=== PATIENT | male | born 1970 | race Caucasian/White ===

== ENCOUNTER 2018-11-30 14:58 | Emergency (ER) | payer BC ==
[~2018-11-30] VITALS: Ht 177.8 cm; Wt 105.3 kg
--- NOTE | 2018-11-30 15:19 | RAD ---
EXAM: Chest, single view. HISTORY: Chest pain. COMPARISON: None. FINDINGS: A frontal view of the chest is obtained. There is no infiltrate, pleural effusion or pneumothorax. There are slight decreased lung volumes with associated atelectasis and vascular crowding. The cardiac silhouette is normal in size for lung volumes. IMPRESSION: No acute pulmonary finding. Electronically signed by: Lakeshia Hitchcock MD (11/30/2018 3:16 PM) [place] [id number]
--- NOTE | 2018-11-30 15:33 | PHYS DOC ---
Adult General Chief Complaint Chief Complaint: CHEST PAIN HPI HPI 48-year-old male presents with chest pain. The patient was eating lunch earlier today when he felt like he got a piece of food stuck. He had an episode of vomiting. Since that time he's had some right sided chest pain. Patient thought it might just be gas so he took some Gas-X. He decided to come the emergency room when he additionally developed cramping between his shoulder blades and the pain was as high as 9 out of 10. At this time the pain is resolved, but it seems to come and go. He has no heart history. He denies shortness of breath or diaphoresis. He has not had an EGD to evaluate his swallowing issues. He is not on any medications. He denies fever or chills. Review of Systems Review of Systems Constitutional: Denies fever or chills [] Eyes: Denies change in visual acuity, redness, or eye pain [] HENT: Denies nasal congestion or sore throat [] Respiratory: Denies cough or shortness of breath [] Cardiovascular: No additional information not addressed in HPI [] GI: Denies abdominal pain, nausea, vomiting, bloody stools or diarrhea [] : Denies dysuria or hematuria [] Musculoskeletal: Pain between the shoulder blades.[] Integument: Denies rash or skin lesions [] Neurologic: Denies headache, focal weakness or sensory changes [] Endocrine: Denies polyuria or polydipsia [] All other systems were reviewed and found to be within normal limits, except as documented in this note. Current Medications Current Medications Current Medications Medications (Trade) Dose Ordered Sig/[facility] Start Time Stop Time Status Last Admin Dose Admin Aspirin (Children'S Aspirin) 324 mg 1X ONCE 11/30/18 15:15 11/30/18 15:16 UNV Physical Exam Physical Exam Constitutional: Well developed, well nourished, no acute distress, non-toxic appearance. [] HENT: Normocephalic, atraumatic, bilateral external ears normal, oropharynx moist, no oral exudates, nose normal. [] Eyes: PERRLA, EOMI, conjunctiva normal, no discharge. [] Neck: Normal range of motion, no tenderness, supple, no stridor. [] Cardiovascular:Heart rate regular rhythm, no murmur [] Lungs & Thorax: Bilateral breath sounds clear to auscultation [] Abdomen: Bowel sounds normal, soft, no tenderness, no masses, no pulsatile masses. [] Skin: Warm, dry, no erythema, no rash. [] Back: No tenderness, no CVA tenderness. [] Extremities: No tenderness, no cyanosis, no clubbing, ROM intact, no edema. [] Neurologic: Alert and oriented X 3, normal motor function, normal sensory function, no focal deficits noted. [] Psychologic: Affect normal, judgement normal, mood anxious. [] EKG EKG Sinus rhythm, rate 86, normal axis, no ST elevations or depressions.[] Radiology/Procedures Radiology/Procedures [] Impressions: EXAM: Chest, single view. HISTORY: Chest pain. COMPARISON: None. FINDINGS: A frontal view of the chest is obtained. There is no infiltrate, pleural effusion or pneumothorax. There are slight decreased lung volumes with associated atelectasis and vascular crowding. The cardiac silhouette is normal in size for lung volumes. IMPRESSION: No acute pulmonary finding. Electronically signed by: Lakeshia Hitchcock MD (11/30/2018 3:16 PM) [place] [id number] DICTATED AND SIGNED BY: LAKESHIA HITCHCOCK MD DATE: 11/30/18 1818 CC: RANDY ARIAS DO; PCP,NO Course & Med Decision Making Course & Med Decision Making Pertinent Labs and Imaging studies reviewed. (See chart for details) The patient's HEART score is 1 for age. The patient's labs are unremarkable except for an elevated white count. His troponin is negative. His EKG is unremarkable. His chest x-ray is unremarkable. I believe the patient may be having esophageal spasm. Partially stuck fluid bolus. I will try a GI cocktail to see if this improves his pain. Patient's pain has improved significant family. He is having occasional tightening in the epigastric area, but is much less severe. It sounds like the patient is having esophageal spasm likely from irritation with the food getting caught. I have advised the patient to seek an outpatient EGD since he has had long-standing issues with swallowing. Do not believe his pain is cardiac in origin. I have offered the patient observation admission versus going home. He has elected to go home. I stressed to him that if his condition worsens or if the symptoms return that he should come back to the emergency room. He is stated verbal agreement. I cannot explain his elevated white count. The patient did have a single shot 2 days ago and is possibly an immune reaction. I do not have any signs of infection. The patient is stable for discharge at this time. [] Dragon Disclaimer Dragon Disclaimer This electronic medical record was generated, in whole or in part, using a voice recognition dictation system. Departure Departure: Impression: Primary Impression: Chest pain Additional Impression: Esophageal spasm Disposition: HOME, SELF-CARE Condition: STABLE Referrals: PCP,NO (PCP) Patient Instructions: Chest Pain (Nonspecific), [id number], Esophageal Spasm Problem Qualifiers Primary Impression: Chest pain Chest pain type: other chest pain Qualified Codes: R07.89 - Other chest pain RANDY ARIAS DO Nov 30, 2018 15:33
[2018-11-30 15:39] LABS: BASO # 0.1 x10^3/uL (0.0-0.2); BASO % 0 % (0-3); EOS # 0.1 x10^3/uL (0.0-0.7); EOS % 0 % (0-3); HEMATOCRIT 46.4 % (39.0-53.0); HEMOGLOBIN 16.1 g/dL (13.0-17.5); LYMPH # 1.3 x10^3/uL (1.0-4.8); LYMPH % 6 % (24-48); MEAN CORPUSCULAR HEMOGLOBIN 31 pg (25-35); MEAN CORPUSCULAR HGB CONC 35 g/dL (31-37); MEAN CORPUSCULAR VOLUME 90 fL (79-100); MONO # 0.8 x10^3/uL (0.0-1.1); MONO % 4 % (0-9); NEUT # 18.3 x10^3uL (1.8-7.7); NEUT % 89 % (31-73); PLATELET COUNT 274 x10^3/uL (140-400); RED BLOOD COUNT 5.18 x10^6/uL (4.30-5.70); RED CELL DISTRIBUTION WIDTH 12.6 % (11.5-14.5); WHITE BLOOD COUNT 20.6 x10^3/uL (4.0-11.0)
[2018-11-30] MEDS ORDERED: ASPIRIN 81 MG TAB.CHEW PO ONE (15:45)
[2018-11-30 15:57] LABS: ALBUMIN 4.2 g/dL (3.4-5.0); ALBUMIN/GLOBULIN RATIO 1.1 (1.0-1.7); CALCIUM 9.3 mg/dL (8.5-10.1); GFR 79.1; TOTAL BILIRUBIN 1.1 mg/dL (0.2-1.0); TOTAL PROTEIN 7.9 g/dL (6.4-8.2)
[2018-11-30] MEDS ORDERED: LIDO:MAALOX 1:1 20 ML SINGLE DOSE. ONE (16:05)
[2018-11-30] MEDS ORDERED: LIDO:MAALOX 1:1 20 ML SINGLE DOSE. PO ONE (16:15)
[2018-11-30] MEDS ORDERED: IV NORMAL SALINE 1,000ML 1,000 ML IV ONE (16:30)
[2018-11-30 16:34] LABS: % BANDS 4 % (0-9); % BASOS 0 % (0-3); % EOS 1 % (0-5); % LYMPHS 12 % (24-48); % MONOS 3 % (0-10); % SEGS 80 % (35-66); PLT ESTIMATE ADEQUATE (ADEQUATE)
[2018-11-30 17:31] LABS: BACTERIA,URINE 0 /HPF (0-FEW); BILIRUBIN,URINE NEG (NEG); CLARITY,URINE CLEAR; COLOR,URINE YELLOW; GLUCOSE,URINE NEG (NEG); NITRITE,URINE NEG (NEG); RBC,URINE 0 /HPF (0-2); UROBILINOGEN,URINE 0.2 mg/dL (0.2 mg/dL); WBC,URINE 0 /HPF (0-4)
[2018-11-30 17:45] VITALS: BP 149/88
--- NOTE | 2018-12-01 18:34 | EKG ---
[address] [address] Test Date: 2018-11-30 Test Time: 15:10:53 Pat Name: MARYANN CRUZ Department: Room: Gender: M Certified Optician: : [id number] Requested By: RANDY ARIAS Order Number: [id number] Reading MD: Eliezer Garces Measurements Intervals [place] Rate: 86 P: 42 OR: 182 QRS: 48 QRSD: 74 T: 23 QT: 328 QTc: 395 Interpretive Statements SINUS RHYTHM NORMAL ECG RI6.01 No previous ECG available for comparison Electronically Signed On 12-08-2018 10:47:18 [employer] by Eliezer Garces
== END 2018-11-30 17:45 | disposition home or self-care (01) ==
LOC: ER 14:58
DX: R07.89 Other chest pain (principal); K22.4 Dyskinesia of esophagus; R11.11 Vomiting without nausea
CPT/HCPCS: 36415; 71045; 80053; 81001; 84484; 85007; 85025; 93005; 96360; 99284-25; J7030